=== PATIENT | male | born 1925 | race Caucasian/White ===

== ENCOUNTER 2017-03-01 14:52 | Outpatient (RCR) | payer MEDICARE, OTHER | END 2017-03-05 | LOC: M PR 14:52 | PROVIDERS: ATTEND Internal Medicine Pulmonary Disease | DX: Z51.89 Encounter for other specified aftercare (principal); J43.2 Centrilobular emphysema | CPT/HCPCS: 93797; G0424 ==

== ENCOUNTER → 2017-04-05 | Outpatient (RCR) | payer MEDICARE, OTHER ==
[~2017-04-05] MED LIST: ACCU1TAB2 PO; ADV250INH INH; ALBU83IN INH; COMBAER6 INH; FINA5TAB2 PO; FLOM5CAP PO; GLYB5TA PO; HYDR-3713 PO; INSULANT SC; METF10004 PO; OMEP40CA2 PO; PRED10TA2 PO; TIOT18INH INH
== END ==
LOC: M PR 03-06 07:56
PROVIDERS: ATTEND Internal Medicine Pulmonary Disease
DX: Z51.89 Encounter for other specified aftercare (principal)
CPT/HCPCS: G0424 ×7

== ENCOUNTER 2017-05-03 14:38 | Outpatient (RCR) | payer MEDICARE, OTHER | END 2017-05-05 | LOC: M PR 14:38 | PROVIDERS: ATTEND Internal Medicine Pulmonary Disease | DX: Z51.89 Encounter for other specified aftercare (principal); J43.2 Centrilobular emphysema | CPT/HCPCS: G0424 ×7 ==

== ENCOUNTER 2017-05-10 15:10 | Emergency (ER) | payer MEDICARE, OTHER ==
[~2017-05-10] VITALS: Ht 157.5 cm; Wt 64.0 kg
[2017-05-10] MEDS ORDERED: ALBU83IN INH (15:27)
[2017-05-10] MEDS ORDERED: INSULANT SC (15:31)
[2017-05-10] MEDS ORDERED: FINA5TAB2 PO (15:31)
[2017-05-10] MEDS ORDERED: ACCU1TAB2 PO (15:31)
[2017-05-10] MEDS ORDERED: TIOT18INH INH (15:31)
[2017-05-10] MEDS ORDERED: FLOM5CAP PO (15:31)
[2017-05-10] MEDS ORDERED: GLYB5TA PO (15:31)
[2017-05-10] MEDS ORDERED: METF10004 PO (15:31)
[2017-05-10] MEDS ORDERED: OMEP40CA2 PO (15:31)
[2017-05-10] MEDS ORDERED: ADV250INH INH (15:31)
[2017-05-10] MEDS ORDERED: COMBAER6 INH (15:31)
[2017-05-10] MEDS ORDERED: HYDR-3713 PO (15:31)
[2017-05-10 16:17] LABS: BASO % 0.3 % (0.0-1.0); EOS # 0.1 10^3/uL (0.0-0.50); EOS % 1.8 % (0.0-3.0); IMMATURE GRANULOCYTE % 0.4 % (0-0); LYMPH # 1.2 10^3/uL (1.5-4.5); LYMPH % 17.2 % (24.0-44.0); MEAN CORPUSCULAR HEMOGLOBIN 31.8 pg (27.0-33.0); MEAN CORPUSCULAR HGB CONC 32.9 g/dl (32.0-36.5); MEAN CORPUSCULAR VOLUME 96.7 fl (80.0-96.0); MONO # 0.7 10^3/uL (0.0-0.8); MONO % 9.2 % (0.0-5.0); NEUTROPHILS % 71.1 % (36.0-66.0); PLATELET COUNT, AUTOMATED 230 10^3/uL (150-450); RED CELL DISTRIBUTION WIDTH 13.6 % (11.5-14.5)
[2017-05-10 16:20] LABS: ADD MORPHOLOGY? NO
--- NOTE | 2017-05-10 16:27 | REP ---
Portable chest x-ray: Single view. History: Chest pain. No comparison study. Findings: Oxygen delivery tubing is seen. There are old healed rib fractures on the left. There is hazy opacity in the upper half of the right hemithorax. An early infiltrate is suspected. Heart is not enlarged. Pleural angles are sharp. Impression: Early infiltrate suspected right upper lobe. Signed by Juan J Marmolejo MD 05/10/2017 05:24 P
[2017-05-10 16:39] LABS: ALBUMIN 3.4 GM/DL (3.2-5.2); ALBUMIN/GLOBULIN RATIO 0.97 (1.00-1.93); ALKALINE PHOSPHATASE 60 U/L (45-117); ALT/SGPT 16 U/L (12-78); ANION GAP 5 MEQ/L (8-16); AST/SGOT 14 U/L (15-37); BILIRUBIN,DIRECT 0.1 MG/DL (0.0-0.2); BILIRUBIN,TOTAL 0.4 MG/DL (0.2-1.0); BLOOD UREA NITROGEN 26 MG/DL (7-18); CALCIUM LEVEL 8.6 MG/DL (8.8-10.2); CARBON DIOXIDE LEVEL 31 MEQ/L (21-32); CHLORIDE LEVEL 99 MEQ/L (98-107); FREE T4 1.19 NG/DL (0.76-1.46); GLOMERULAR FILTRATION RATE 50.8 (>35); GLUCOSE, FASTING 229 MG/DL (83-110); POTASSIUM SERUM 5.1 MEQ/L (3.5-5.1); SODIUM LEVEL 135 MEQ/L (136-145); TOTAL PROTEIN 6.9 GM/DL (6.4-8.2)
--- NOTE | 2017-05-10 17:16 | REP ---
Right lower extremity Duplex Doppler venous ultrasound: Real time compression and duplex Doppler interrogation of the right lower extremity deep venous system is performed. The right common femoral, superficial femoral and popliteal veins are fully compressible with transducer pressure and demonstrate normal spontaneous and phasic flow, without evidence of deep venous thrombosis. Impression: No evidence of deep venous thrombosis of the right lower extremity femoral popliteal venous system. Signed by Emerson Hamlin MD 05/10/2017 05:07 P
--- NOTE | 2017-05-10 19:19 | REP ---
CT CHEST WITHOUT IV CONTRAST: CT chest was performed without IV contrast. Sagittal and coronal reconstruction images are performed. There are significant emphysematous changes primarily in the lower lobes. No infiltrates are seen. Scattered fibrosis is seen bilaterally with some subsegmental atelectasis in the left perihilar region. Scattered tiny calcified granulomas are seen bilaterally. There is no pleural or pericardial effusion. Heart is normal in size. Calcified lymph nodes are seen in the mediastinum. Atherosclerotic calcifications are seen in the thoracic aorta without aneurysm. There are multiple calcified granulomas in the liver and spleen. Tiny calcifications are seen in the pancreatic tail. Large right renal cysts are present. IMPRESSION: Emphysematous changes in the lower lobes. Diffuse fibrotic changes and scattered tiny calcified granulomas. No acute infiltrate or pleural effusion. Signed by Emerson Hamlin MD 05/11/2017 02:42 P
[2017-05-10] MEDS ORDERED: PRED10TA2 PO (19:58)
[2017-05-10] MEDS ORDERED: predniSONE 20 MG TAB PO ONE (20:00)
[2017-05-10 20:05] VITALS: BP 168/90
--- NOTE | 2017-05-12 05:26 | ECGEPIP ---
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
== END 2017-05-10 20:15 | disposition home or self-care (01) ==
LOC: M ED 15:10
DX: J44.1 Chronic obstructive pulmonary disease with (acute) exacerbation (principal); J96.01 Acute respiratory failure with hypoxia; R00.0 Tachycardia, unspecified; I44.0 Atrioventricular block, first degree; E11.9 Type 2 diabetes mellitus without complications; I10 Essential (primary) hypertension; E78.5 Hyperlipidemia, unspecified; M54.9 Dorsalgia, unspecified; J30.81 Allergic rhinitis due to animal (cat) (dog) hair and dander; Z79.4 Long term (current) use of insulin; Z79.899 Other long term (current) drug therapy